=== PATIENT | male | born 1970 | race Caucasian/White ===

== ENCOUNTER 2021-09-08 08:13 | Outpatient (CLI) | payer OTHER, SELFPAY ==
[2021-09-08 10:56] LABS: Albumin* 4.6 g/dL (3.3-5.0); Chloride* 110 mmol/L (96-114)
[2021-09-08 10:57] LABS: Potassium* 4.7 mmol/L (3.6-5.1); Sodium* 141 mmol/L (135-149)
[2021-09-08 10:59] LABS: Aspartate Amino Transferase* 22 U/L (12-35); Bilirubin Total* 0.7 mg/dL (0.1-1.5); Blood Urea Nitrogen* 15 mg/dL (7-30); Carbon Dioxide* 24 mmol/L (20-32); Cholesterol* 213 mg/dL (90-199); Creatinine* 0.9 mg/dL (0.5-1.5); Estimated Glomerular Filt Rate 104 ml/min; Glucose* 109 mg/dL (60-115); Total Protein* 6.9 g/dL (6.0-8.3)
[2021-09-08 11:00] LABS: Alanine Aminotransferase* 19 U/L (4-50); Alkaline Phosphatase* 73 U/L (40-150); Calcium* 9.2 mg/dL (8.4-10.6); HDL Cholesterol* 60 mg/dL (>=40); LDL Cholesterol Calculated 133 mg/dL (<100); Triglycerides* 99 mg/dL (40-149)
[2021-09-08 11:30] LABS: PSA Screen* 0.33 ng/mL (0.10-4.00)
== END 2021-09-08 08:14 | disposition home or self-care (01) ==
PROVIDERS: PCP Internal Medicine; Visit Provider Internal Medicine
DX: Z00.00 Encounter for general adult medical examination without abnormal findings (principal); R09.1 Pleurisy
CPT/HCPCS: 80053; 80061; 84153

== ENCOUNTER 2022-10-28 15:02 | Outpatient (CLI) | payer OTHER, SELFPAY | END 2022-10-28 15:03 | disposition home or self-care (01) | LOC: NFLDREF 10-30 01:30 | PROVIDERS: PCP Internal Medicine; Referring Provider Internal Medicine; Visit Provider Internal Medicine | DX: Z00.00 Encounter for general adult medical examination without abnormal findings (principal); Z13.6 Encounter for screening for cardiovascular disorders; Z12.5 Encounter for screening for malignant neoplasm of prostate | CPT/HCPCS: 80053; 80061; 84153 ==

== ENCOUNTER 2023-11-16 08:10 | Outpatient (CLI) | payer BC, SELFPAY | END 2023-11-16 08:11 | disposition home or self-care (01) | LOC: NFLDREF 11-17 08:40 | PROVIDERS: PCP Internal Medicine; Referring Provider Internal Medicine; Visit Provider Internal Medicine | DX: E78.5 Hyperlipidemia, unspecified (principal); Z13.9 Encounter for screening, unspecified; Z12.5 Encounter for screening for malignant neoplasm of prostate | CPT/HCPCS: 80053; 80061; G0103 ==

== ENCOUNTER 2024-09-11 14:41 | Outpatient (CLI) | payer BC, SELFPAY | END 2024-09-11 14:42 | disposition home or self-care (01) | PROVIDERS: PCP Internal Medicine; Referring Provider Internal Medicine; Visit Provider Internal Medicine | DX: N39.0 Urinary tract infection, site not specified (principal) | CPT/HCPCS: 87086 ==